=== PATIENT | female | born 1995 | race Caucasian/White ===

== ENCOUNTER 2016-12-08 09:55 | Inpatient (IN) | payer BC, OTHER ==
[~2016-12-08] VITALS: Ht 160 cm; Wt 97.3 kg
[~2016-12-08 09:55] MED LIST: CALC-223 PO; FERR325C PO; PREN-46 PO
[2016-12-08 12:25] VITALS: Ht 160 cm; Wt 97.3 kg
[2016-12-08 12:26] VITALS: BP 117/71; PULSE 78; RESP 18
[2016-12-08] MEDS ORDERED: LACTATED RINGER'S 1,000 ML IV SCH (12:27)
[2016-12-08] MEDS ORDERED: CLINDAMYCIN 900 MG/D5W (PMX) 50 ML IV SCH (12:30)
[2016-12-08] MEDS ORDERED: GENTAMICIN 80 MG in SOD CHLORIDE 0.9% 100 ML IVPB SCH (12:30)
[2016-12-08] MEDS ORDERED: OXYTOCIN 30 UNITS/LR 500 ML IV PRN ×2 (12:30→21:00)
[2016-12-08] MEDS ORDERED: METHYLERGONOVINE 0.2 MG INJ IM PRN ×2 (12:30→21:00)
[2016-12-08] MEDS ORDERED: CARBOPROST 250 MCG INJ IM PRN ×2 (12:30→21:00)
[2016-12-08] MEDS ORDERED: MISOPROSTOL 200 MCG TAB PR PRN ×2 (12:30→21:00)
[2016-12-08 13:24] LABS: ADD SCAN DIFF NO
[2016-12-08 13:26] LABS: ABNORMAL IP MESSAGE 1; BASOPHILS % 0.2 % (0.0-2.0); EOSINOPHILS % 0.6 % (0.0-7.0); HEMATOCRIT 34.5 % (37.0-47.0); HEMOGLOBIN 11.3 g/dl (12.0-16.0); LYMPHOCYTES # 1.5 10^3/ul (0.8-2.9); LYMPHOCYTES % 23.5 % (15.0-51.0); MEAN CORPUSCULAR HEMOGLOBIN 29.3 pg (29.0-33.0); MEAN CORPUSCULAR HGB CONC 32.8 g/dl (32.0-37.0); MEAN CORPUSCULAR VOLUME 89.4 fl (82.0-101.0); MEAN PLATELET VOLUME 13.9 fl (7.4-10.4); MONOCYTE # 0.4 10^3/ul (0.3-0.9); MONOCYTES % 5.6 % (0.0-11.0); NEUTROPHIL # 4.4 10^3/ul (1.6-7.5); NEUTROPHILS % 69.6 % (39.0-77.0); PLATELET COUNT 116 10^3/UL (140-415); RED BLOOD COUNT 3.86 10^6/ul (4.20-5.40); RED CELL DISTRIBUTION WIDTH 13.5 % (11.5-14.5); WHITE BLOOD COUNT 6.3 10^3/ul (4.8-10.8)
[2016-12-08 13:45] LABS: INR 1.04; PROTIME 13.6 Sec (12.2-14.2); PT RATIO 1.1
[2016-12-08] MEDS ORDERED: GENTAMICIN 80 MG/NS (PMX) 50 ML IVPB SCH (14:35)
[2016-12-08] MEDS ORDERED: EPHEDrine SULFATE 50 MG/5 ML SYG ONE (15:36)
[2016-12-08] MEDS ORDERED: OXYTOCIN 30 UNITS/LR 500 ML IV ONE (15:36)
[2016-12-08] MEDS ORDERED: OXYTOCIN 10 UNIT INJ ONE ×2 (15:36)
[2016-12-08] MEDS ORDERED: ONDANSETRON 4 MG INJ ONE (15:36)
[2016-12-08] MEDS ORDERED: METOCLOPRAMIDE 10 MG INJ ONE (15:36)
[2016-12-08] MEDS ORDERED: morphine SULFATE/PF (10 MG/10 ML) INJ ONE (15:36)
--- NOTE | 2016-12-08 16:09 | HP ---
Date/Time of Note Date/Time of Note DATE: 12/08/16 TIME: 16:05 OB - History Hx of Present Free Text/Dictation admitted for repeat C/S at term Last Menstrual Period: Feb 18, 2017 Estimated Due Date: Dec 15, 2016 : 3 Para: 1 Therapeutic : 1 Care: Good Care Ultrasounds: Normal mid trimester US Obstetrical Complications: None Medical Complications: None Past Family/Social History * Past Medical, Surgical, Family and Obstetric Histories reviewed from chart. Blood Type: B+ Rubella: immune RPR/VDRL: Negative GBS Status: Negative HBsAG: Negative OB Admission Exam Vital Signs Vital Signs Vital Signs Date Time Temp Pulse Resp B/P Pulse Ox O2 Delivery O2 Flow Rate FiO2 12/08/16 12:26 98.0 78 18 117/71 Room Air Physical Exam HEENT: WNL Heart: Rhythm Normal Lungs: Clear, Equal Abdomen: WNL Extremities: Normal Reflexes: Normal Cervical Dilatation: None Effacement: 0% Station: -3 Membranes: Intact Heart Rate: 130's Accelerations: Accelerations Present Decelerations: No Decelerations Varibility: Moderate Contractions on Admission: None Last 72 hours Lab Results CBC & BMP 12/08/16 12:40 OB Assessment/Plan Reason for admission: section Other Assessment: term gestation previous C/S Other plan: repeat C/S GUILLERMO BARKSDALE MD Dec 08, 2016 16:09
--- NOTE | 2016-12-08 16:48 | OPR ---
Operative Report Planned Procedure Procedure date Dec 08, 2016 Procedure(s) repeat C/S Performed by: GUILLERMO BARKSDALE MD Assisting provider: LESLIE BARRETT MD Anesthesiologist: LISA TORRES MD Pre-procedure diagnosis term gestation previous C/S X1 Anesthesia Type: spinal Procedure Description Under satisfactory anaesthesia a Pfannenstiel incision was made two fingerbreadth above and parallel to the symphysis of pubis around the previous scar and previous scar was removed Incision was extended laterally to the border of the Recti muscles on either sides. Incision was carried down with sharp and blunt dissection until fascia was reached. Anterior Recti muscle fascia was incised in mid portion and incision extended laterally to the border of skin incision. Fascia was mobilized from muscle superiorly and Recti muscles were from midline using sharp and blunt dissection. Peritoneum was visualized; Avoiding bowel and bladder it was incised . Incision was extended superiorly and inferiorly. Bladder blade was placed. Posterior peritoneum covering the lower segment of the uterus and lower segment of the uterus were incised.Low transverse uterine incision was made on lower segment of the uterus. Incision extended laterally to the border of Round Lig. on either sides and baby was delivered from OT. position . Amniotic fluid appeared clear. Cord blood was obtained and cord had 3 vessels . Placenta was delivered spontaneously and appeared intact and complete. Intrauterine cavity was rubbed with a laparotomy sponge. Uterine incision was closed in 2 layers using running stitches of No1 Monocryl. Hemostasis appeared secure. Ovaries and Fallopian tubes were within normal limits. Announcing needle, lap sponge and instrument count to be correct abdomen was closed in layers as follows: Peritoneum and Recti muscles with running stitches of 20 Vicryl. Fascia with running stitch of No 1 PDS. Subcutaneous tissue with running stitches of 20 Chromic and skin was closed using maninder. Patient tolerated the procedure well and was transferred to [facility] in good condition. Post-Procedure Post-procedure diagnosis S/P C/S Findings: Live Baby Specimen removed: No Complications: None Pt Condition post procedure: stable Disposition: PACU Physician Certification I, the undersigned physician, hereby certify that I have discussed the procedure described in this consent form with this patient (or the patient's legal patient account representative), including: * The risk and benefits of the procedure; * Any adverse reactions that may reasonably be expected to occur; * Any alternative efficacious methods of treatment which may be medically viable ; * The potential problems that may occur during recuperation; * Potential for blood transfusion and associated risks/benefits; and * Any research or economic interest I may have regarding this treatment. I further certify that the patient/legally responsible person was encouraged to ask question and that all questions were answered. GUILLERMO BARKSDALE MD Dec 08, 2016 16:48
[2016-12-08] MEDS: KETOROLAC 30 MG INJ IV PRN (18:18)
[2016-12-08] MEDS ORDERED: morphine SULFATE/PF (10 MG/10 ML) INJ SPINAL ONE (18:30)
[2016-12-08] MEDS ORDERED: NALOXONE (0.4 MG/ML) INJ IV PRN (18:30)
[2016-12-08] MEDS ORDERED: ONDANSETRON 4 MG INJ IV PRN (18:30)
[2016-12-08] MEDS ORDERED: morphine 2 MG INJ IV PRN ×2 (18:30)
[2016-12-08] MEDS ORDERED: DIPHENHYDRAMINE 50 MG INJ IV PRN (18:30)
[2016-12-08] MEDS ORDERED: HYDROmorphONE 1 MG/ML SYG IV PRN ×2 (18:30)
[2016-12-08] MEDS ORDERED: EPHEDrine SULFATE 50 MG/5 ML SYG IV PRN (18:30)
[2016-12-08 20:00] VITALS: BP 108/59; PULSE 66; RESP 20
[2016-12-08 20:30] VITALS: BP 108/66; PULSE 72; RESP 16
[2016-12-08] MEDS: LACTATED RINGER'S 1,000 ML IV SCH (20:38)
[2016-12-08 21:00] VITALS: BP 107/54; PULSE 85; RESP 16
[2016-12-08] MEDS ORDERED: CEFAZOLIN 2 GM/50 ML (PMX) 50 ML IV SCH (21:00)
[2016-12-08] MEDS ORDERED: LANOLIN 7 GM TUBE TOP PRN (21:00)
[2016-12-08] MEDS ORDERED: NA PHOSPHATE/BIPHOS 133 ML ENEMA PR PRN (21:00)
[2016-12-08] MEDS: SENNA/DOCUSATE NA (8.6MG/50MG) TAB PO SCH (21:00)
[2016-12-08] MEDS ORDERED: ACETAMINOPHEN/CODEINE #3 TAB PO PRN (21:00)
[2016-12-08 22:00] VITALS: BP 97/54; PULSE 82; RESP 16
[2016-12-08] MEDS: IBUPROFEN 800 MG TAB PO SCH (22:00)
[2016-12-08 23:00] VITALS: BP 99/56; PULSE 75; RESP 20
[2016-12-08] MEDS: GENTAMICIN 80 MG/NS (PMX) 50 ML IVPB SCH (23:44)
[2016-12-09] VITALS: BP 102/52; PULSE 75; RESP 20
[2016-12-09] MEDS ORDERED: CLINDAMYCIN 300 MG CAP PO SCH
[2016-12-09] MEDS: CLINDAMYCIN 900 MG/D5W (PMX) 50 ML IVPB SCH ×4 (00:38→18:25)
[2016-12-09 04:00] VITALS: BP 98/52; PULSE 70; RESP 20
[2016-12-09] MEDS: LACTATED RINGER'S 1,000 ML IV SCH ×3 (04:03→20:38)
[2016-12-09] MEDS: IBUPROFEN 800 MG TAB PO SCH ×3 (06:00→21:29)
[2016-12-09] MEDS: GENTAMICIN 80 MG/NS (PMX) 50 ML IVPB SCH ×3 (07:44→22:54)
[2016-12-09 07:54] LABS: ADD SCAN DIFF NO
[2016-12-09 08:10] LABS: ABNORMAL IP MESSAGE 1; BASOPHILS % 0.3 % (0.0-2.0); EOSINOPHILS % 0.4 % (0.0-7.0); HEMATOCRIT 27.6 % (37.0-47.0); HEMOGLOBIN 9.2 g/dl (12.0-16.0); LYMPHOCYTES # 1.5 10^3/ul (0.8-2.9); LYMPHOCYTES % 19.1 % (15.0-51.0); MEAN CORPUSCULAR HEMOGLOBIN 29.6 pg (29.0-33.0); MEAN CORPUSCULAR HGB CONC 33.3 g/dl (32.0-37.0); MEAN CORPUSCULAR VOLUME 88.7 fl (82.0-101.0); MEAN PLATELET VOLUME 13.8 fl (7.4-10.4); MONOCYTE # 0.6 10^3/ul (0.3-0.9); MONOCYTES % 7.4 % (0.0-11.0); NEUTROPHIL # 5.5 10^3/ul (1.6-7.5); NEUTROPHILS % 72.4 % (39.0-77.0); PLATELET COUNT 94 10^3/UL (140-415); RED BLOOD COUNT 3.11 10^6/ul (4.20-5.40); RED CELL DISTRIBUTION WIDTH 13.2 % (11.5-14.5); WHITE BLOOD COUNT 7.6 10^3/ul (4.8-10.8)
[2016-12-09 08:30] VITALS: BP 97/48; PULSE 69; RESP 18
[2016-12-09] MEDS: SENNA/DOCUSATE NA (8.6MG/50MG) TAB PO SCH ×2 (09:09→21:29)
[2016-12-09] MEDS: KETOROLAC 30 MG INJ IV PRN ×2 (09:24→16:47)
--- NOTE | 2016-12-09 09:45 | PN ---
Date/Time of Note Date/Time of Note DATE: 12/09/16 TIME: 09:44 Assessment/Plan VTE Prophylaxis VTE Prophylaxis Intervention: ambulation Lines/Catheters IV Catheter Type (from Nrsg): Peripheral IV Assessment/Plan Assessment/Plan POD # 1 S/P C/S will advance diet and ambulate Subjective 24 Hr Interval Summary No BM passing flatus Constitutional: BM, ambulates, flatus, improved, no complaints, urine output Pain Control: well controlled Exam/Review of Systems Vital Signs Vitals Vital Signs Date Time Temp Pulse Resp B/P Pulse Ox O2 Delivery O2 Flow Rate FiO2 12/09/16 05:10 96 21 12/09/16 04:00 98.5 70 20 98/52 Room Air Intake and Output 12/08/16 12/08/16 12/09/16 15:00 23:00 07:00 Intake Total 1310 ml 660 ml Output Total 1100 ml 250 ml Balance 210 ml 410 ml Exam Free Text/Dictation abdomen: soft BS + incision: covered Constitutional: alert, oriented, well developed Psych: nl mood/affect, no complaints Head: atraumatic, normocephalic Eyes: EOMI, nl conjunctiva, nl lids, nl sclera ENMT: mucosa pink and moist, nl external ears & nose, nl lips & teeth, nl nasal mucosa & septum Neck: non-tender, supple Respiratory: clear to auscultation, normal air movement Cardiovascular: nl pulses, regular rate and rhythm Gastrointestinal: nl liver, spleen, non-tender, soft Drains none Musculoskeletal: nl extremities to inspection, nl gait and stance Extremities: normal pulses Neurological: AGILE SCRUM COACH II-XII intact, nl mental status, nl speech, nl strength Skin: nl turgor, rash or lesions Lymph: nl lymph nodes Results Result Diagram: 12/09/16 0720 GUILLERMO BARKSDALE MD Dec 09, 2016 09:45
[2016-12-09] MEDS ORDERED: BISACODYL 10 MG SUPP PR ONE (10:00)
[2016-12-09 12:00] VITALS: BP 97/52; PULSE 72; RESP 19
[2016-12-09 16:00] VITALS: BP 95/51; PULSE 75; RESP 75
[2016-12-09] MEDS: OXYCODONE/ACETAMINOPHEN (5/325) TAB PO PRN (18:32)
[2016-12-09 20:00] VITALS: BP 105/60; PULSE 68; RESP 18
[2016-12-10] MEDS: CLINDAMYCIN 900 MG/D5W (PMX) 50 ML IVPB SCH (00:33)
[2016-12-10 04:00] VITALS: BP 101/62; PULSE 62; RESP 20
[2016-12-10] MEDS: LACTATED RINGER'S 1,000 ML IV SCH ×2 (04:38→12:38)
[2016-12-10] MEDS: IBUPROFEN 800 MG TAB PO SCH ×3 (06:08→23:26)
[2016-12-10 08:30] VITALS: BP 106/69; PULSE 77; RESP 18
[2016-12-10] MEDS: SENNA/DOCUSATE NA (8.6MG/50MG) TAB PO SCH ×2 (09:49→21:29)
[2016-12-10] MEDS: OXYCODONE/ACETAMINOPHEN (5/325) TAB PO PRN ×2 (09:49→21:17)
[2016-12-10] MEDS: CLINDAMYCIN 300 MG CAP PO SCH ×3 (12:06→23:26)
[2016-12-10 16:43] VITALS: BP 112/78; PULSE 64; RESP 18
--- NOTE | 2016-12-10 17:01 | PD.PPDC ---
PRESIDENT [employer] Discharge Instruction Provider Information Physician Information 21 y/o female had repeat C/S Diagnosis Final Diagnosis: S/P C/S Condition Patient Condition: Good Diet Diet: Resume Regular Diet Activity/Restrictions Activity: October Shower Restrictions: No Exercising No Lifting Nothing in the Vagina Return to Work or School: Feb 14, 2017 Wound/Drain Care Instructions Wound/Drain Care Instructions: Keep clean and dry Follow-up Follow-up with Physician: 2, 3, Day/Days (in clinic for staple removal ) Return to clinic for [employer] Instructions: Fever greater than 101 Chills OB Instructions: Breast Tenderness Depression Surgical Instructions: Incisional Drainage Incisional Redness GUILLERMO BARKSDALE MD Dec 10, 2016 17:01
[2016-12-10] MEDS ORDERED: Oxycodone/Acetamin (5/325) PO (17:02)
[2016-12-10] MEDS ORDERED: IBUP800T25 PO (17:02)
--- NOTE | 2016-12-10 17:06 | DS ---
Date/Time of Note Date/Time of Note home next day DATE: 12/10/16 TIME: 17:05 Obstetrical Discharge Record Final Diagnosis Final Diagnosis: Term delivered Other Final Diagnosis S/P C/S Section Section: Repeat Condition on Discharge Physical Assessment Last Vitals: see nurses notes Voiding: Yes Bowel Movement: Yes Breast: Soft, non-tender, Filling Fundus: Firm Abdomen and Incision: soft bs + incision: healing well Episiotomy: NA Calf Tenderness: No Patient Condition: Good GUILLERMO BARKSDALE MD Dec 10, 2016 17:06
--- NOTE | 2016-12-10 17:08 | DS ---
Date/Time of Note Date/Time of Note DATE: 12/10/16 TIME: 17:06 Discharge Summary Admission/Discharge Info Admit Date/Time Dec 08, 2016 at 12:06 Discharge Date/Time 12/11/2016 Discharge Diagnosis S/P C/ S Patient Condition: Good Procedures repeat C/S Hx of Present Illness 21 y/o female had repeat C/S Hospital Course uncomplicated Home Meds Active Scripts [Oxycodone/Acetamin (5/325)] 1 TAB TAB No Conflict Check, 2 TAB PO Q4H Y for PAIN LEVEL 6-10, #30 0 Refills Prov:GUILLERMO BARKSDALE MD 12/10/16 Ibuprofen* (Ibuprofen*) 800 Mg Tablet, 800 MG PO Q8, #30 TAB 0 Refills Prov:GUILLERMO BARKSDALE MD 12/10/16 Reported Medications Calcium Carbonate-Vitamin D3 (Calcium 1,000 + D3) 1 Each Tablet, 1 EACH PO DAILY 09/28/13 Ferrous Sulfate (Iron) 325 Mg Capsr, 325 MG PO DAILY 09/28/13 Vit #108/Iron/Fa ( ONE TABLET) 1 Each Tablet, 1 EACH PO DAILY 09/28/13 Follow-up Plan 2-3 days in clinic for staple removal Primary Care Provider Care Physician No Primary GUILLERMO BARKSDALE MD Dec 10, 2016 17:08
[2016-12-10 20:30] VITALS: BP 103/58; PULSE 72; RESP 18
[2016-12-11 04:10] VITALS: BP 103/61; PULSE 61; RESP 18
[2016-12-11] MEDS: CLINDAMYCIN 300 MG CAP PO SCH ×2 (05:11→12:27)
[2016-12-11] MEDS: OXYCODONE/ACETAMINOPHEN (5/325) TAB PO PRN ×2 (05:11→13:48)
[2016-12-11] MEDS: IBUPROFEN 800 MG TAB PO SCH ×2 (06:00→12:27)
[2016-12-11] MEDS: SENNA/DOCUSATE NA (8.6MG/50MG) TAB PO SCH (08:34)
[2016-12-11 08:41] VITALS: BP 95/57; PULSE 56; RESP 14
[2016-12-11] MEDS ORDERED: MEASLES,MUMPS,RUBELLA VACCINE INJ SC* ONE (09:00)
[2016-12-11] MEDS ORDERED: DIPHTH/TET/ACEL PERTUSS (ADULT) 0.5 ML VIAL IM* ONE (09:00)
== END 2016-12-11 15:15 | disposition home or self-care (01) | DRG 766 ==
LOC: L-D 12:06 → PP1 19:57
PROVIDERS: ADMIT Obstetrics & Gynecology; ATTEND Obstetrics & Gynecology
PROC: 10D00Z1 Extraction of Products of Conception, Low, Open Approach (ICD-10-PCS; principal; 2016-12-08 14:00)
DX: O34.211 Maternal care for low transverse scar from previous cesarean delivery (principal); Z37.0 Single live birth; Z3A.00 Weeks of gestation of pregnancy not specified
CPT/HCPCS: 85025; 85610; 85730; 86592; 86850; 86900; 86901; 90715; 94760; 99464; J1170; J1580; J1885; J2274; J2405; J2590; J2765; J7120